=== PATIENT | female | born 1940 | race Caucasian/White ===

== ENCOUNTER 2017-03-11 11:46 | Outpatient (CLI) | payer MEDICARE, OTHER ==
[2017-03-11 12:32] LABS: eGFR (African) > 60; eGFR (Non-African) > 60
== END 2017-03-11 11:47 ==
LOC: LAB 11:46
PROVIDERS: ATTEND Family Medicine
DX: E11.9 Type 2 diabetes mellitus without complications (principal); I10 Essential (primary) hypertension
CPT/HCPCS: 36415; 80053; 80061; 82043; 83036

== ENCOUNTER 2018-06-01 11:19 | Outpatient (CLI) | payer MEDICARE, OTHER ==
[2018-06-01 12:08] LABS: eGFR (African) > 60; eGFR (Non-African) > 60
== END 2018-06-01 11:20 ==
LOC: LAB 11:19
PROVIDERS: ATTEND Family Medicine
DX: E11.9 Type 2 diabetes mellitus without complications (principal); I10 Essential (primary) hypertension
CPT/HCPCS: 36415; 80053; 80061; 82043; 83036

== ENCOUNTER 2018-07-25 08:19 | Day surgery (SDC) | payer MEDICARE, OTHER ==
[~2018-07-25 08:19] MED LIST: LACTATED RINGERS 500 ML IV.SOLN IV ONE; PROPOFOL 200 MG/20 ML VIAL IV ONE; SALINE FLUSH 10 ML DISP.SYRIN IVF ONE
--- NOTE | 2018-07-26 10:55 | GI Report ---
REFERRING PHYSICIAN: Dr. Ayden Valdovinos SUPERVISOR HARVESTING: Randy Spencer MD PROCEDURE MEDICATION: Propofol as per anesthesia. INDICATIONS: Patient is a 78-year-old woman referred for a screening colonoscopy. She denies any bleeding. She has occasional constipation but takes Metamucil. She has been stable cardiopulmonary foster. PROCEDURE PERFORMED: Colonoscopy and polypectomy. PROCEDURE: An Olympus video colonoscope was advanced into the rectum and slowly advanced to the cecum. The appendiceal orifice and ileocecal valve seemed normal. In the cecum, probably 1 fold or 2 cm to 3 cm above the ileocecal valve, the patient has this flat carpet-like villous-appearing polyp that was removed with electrocautery. It was probably about 4 mm to 5 mm in size but very, very flat and removed in 1 piece. The remaining part of the ascending colon was unremarkable. The transverse colon with no obvious intraluminal lesions noted. The descending colon, again, no obvious intraluminal lesions were noted. In the rectosigmoid, 4 polyps were removed between the rectum and 15 cm, all hyperplastic appearing and submitted to pathology. Patient tolerated the procedure well. FINDINGS: Five polyps removed, 1 near the cecum and 4 in the rectosigmoid. RECOMMENDATIONS: 1. Depending the pathology of the polyps, would have her colon re-looked at again in 5 years. 2. Increase fiber in her diet. 3. Follow up with Dr. Valdovinos. cc: Dr. Ayden ROSE
== END 2018-07-25 08:20 ==
LOC: OPSURG 08:19
PROVIDERS: ATTEND Internal Medicine Gastroenterology
DX: Z12.11 Encounter for screening for malignant neoplasm of colon (principal); K63.5 Polyp of colon
CPT/HCPCS: 45385; 88305; J2704; J7120; S1016

== ENCOUNTER 2018-12-09 09:35 | Emergency (ER) | payer MEDICARE, OTHER ==
--- NOTE | 2018-12-09 10:20 | ED Physician Documentation ---
Fall - HPI Stated Complaint: slipped on ice Chief Complaint: Fall Onset: just prior to arrival Where: home Context: slipped (on ice) Associated Symptoms:: denies: no loss of consciousness Location of Pain/Injury: hip (right) Injury to Right Extremity: none Injury to Left Extremity: none Further Comments: no - ROS CONST: no problems NEURO: denies: dizziness MS/SKIN/LYMPH: denies: weakness EYES/ENT: none CVS/RESP: none GI/: denies: nausea, vomiting - PAST HX Past History: diabetes Type 2 Allergies/Adverse Reactions: Allergies Allergy/AdvReac Type Severity Reaction Status Date / Time Penicillins Allergy Mild Rash Verified 12/09/18 10:12 tetanus immune globulin Allergy Mild Rash Verified 12/09/18 10:12 Home Medications: Ambulatory Orders Medication Instructions Recorded Orphenadrine Citrate [Norflex] 100 mg PO BID PRN #10 tab 12/09/18 - SOCIAL HX Smoking History: non-smoker Alcohol Use: none Drug Use: none - FAMILY HX Family History: none - VITAL SIGNS Vital Signs: Vital Signs Temp Pulse Resp BP Pulse Ox 98.2 F 104 H 16 205/87 98 12/09/18 09:47 12/09/18 09:47 12/09/18 09:47 12/09/18 09:47 12/09/18 09:47 - REVIEWED ASSESSMENTS Nursing Assessment Reviewed: Yes Vitals Reviewed: Yes ED Results Lab/Radiology - Orders Orders: ED Orders Category Date Time Status RT HIP 2VIEW COMPLETE [RAD] Stat Exams 12/09/18 Taken Fall Physical Exam - Physical Exam General Appearance: no acute distress, alert Head: non-tender, no obvious injury Neck: non-tender, painless ROM Eye: SHIRLEY ENT: nml external inspection Resp/CVS: chest non-tender, breath sounds nml Abdomen: soft, normal bowel sounds Neuro: oriented x3, sensation nml, motor nml Skin: no rash Back: normal inspection, no vertebral tenderness Extremities: atraumatic, pelvis stable, hips non-tender Joint: joints nml, nml ROM - Saravanan Coma Score Eyes Open: Spontaneous Speech: Oriented Motor: Obeys Commands Discharge Clincal Impression: Fall Qualifiers: Encounter type: initial encounter Qualified Code(s): W19.XXXA - Unspecified fall, initial encounter Prescriptions: Orphenadrine Citrate [Norflex] 100 mg PO BID PRN #10 tab PRN Reason: muscle spasm\ Referrals: Ayden Valdovinos MD [Primary Care Provider] - 2 Days Additional Instructions: 1. Tylenol and/or ibuprofen as needed for pain 2. Norflex as needed for muscle spasms. This medication can make you dizzy 3. Apply ice to affected area as needed for comfort 4. Follow up with PCP within 1 week 5. Return to ER for new or worsening symptoms. Condition: Stable Disposition: 01 HOME, SELF-CARE Decision to Admit: NO Date of Decison to Admit: 12/09/18 Decision Time: 10:25
[2018-12-09 11:02] VITALS: BP 179/101
--- NOTE | 2018-12-09 14:54 | Diagnostic Imaging Report ---
PHANI RON [facility] [address] [facility] [address] [address] Report Submission Date: Dec 09, 2018 10:15:56 AM PRODUCTION SUPPORT SPECIALIST Patient Study Name: SENIA BUCHANAN Date: Dec 09, 2018 9:48:47 AM PRODUCTION SUPPORT SPECIALIST Modality Type: DX Gender: F Description: RT HIP 2VIEW COMPLETE : 39 Institution: [facility] Physician: PHANI RON Examination: Plain film right hip History: RIGHT HIP PAIN AFTER FALL TODAY Comparison exams: None provided Findings: 2 views of the right hip demonstrate normal cortical margins. No fracture no dislocation. No soft tissue abnormality. Impression: No acute osseous abnormality. Electronically signed on Dec 09, 2018 10:15:56 AM PRODUCTION SUPPORT SPECIALIST by: Андрей ROSE
== END 2018-12-09 10:41 | disposition home or self-care (01) ==
LOC: ED 09:35
DX: M25.551 Pain in right hip (principal); W00.9XXA Unspecified fall due to ice and snow, initial encounter; Y93.9 Activity, unspecified; Y92.009 Unspecified place in unspecified non-institutional (private) residence as the place of occurrence of the external cause
CPT/HCPCS: 73502; 99282; 99283

== ENCOUNTER 2019-02-09 14:17 | Outpatient (CLI) | payer MEDICARE, OTHER ==
[2019-02-09 15:25] LABS: eGFR (Non-African) > 60
--- NOTE | 2019-02-11 06:27 | Diagnostic Imaging Report ---
AYDEN GARCIA [facility] [address] [facility] [address] [address] Report Submission Date: Feb 09, 2019 5:07:17 PM CDT Patient Study Name: SENIA BUCHANAN Date: Feb 09, 2019 2:53:22 PM CDT Modality Type: DX Gender: F Description: CHEST 2VIEW : 39 Institution: [facility] Physician: AYDEN GARCIA Chest PA and lateral views Clinical history: Dyspnea Prior films are not available for comparison. There is cardiomegaly with atherosclerotic thoracic aorta. Multiple lung nodules, bibasilar atelectasis and bilateral pleural effusions right more than left. Moderate thoracic spine spondylosis. Impression: No prior films are available for comparison Moderate cardiomegaly with atherosclerotic thoracic aorta Multiple lung nodules, bibasilar atelectasis and bilateral pleural effusions right more than left CT scan of the chest with IV contrast is recommended for further evaluation. Electronically signed on Feb 09, 2019 5:07:17 PM CDT by: Ayden ROSE
== END 2019-02-09 14:19 ==
LOC: RT 14:17
PROVIDERS: ATTEND Family Medicine
DX: R06.02 Shortness of breath (principal); R60.9 Edema, unspecified; E11.9 Type 2 diabetes mellitus without complications; I51.7 Cardiomegaly; I70.0 Atherosclerosis of aorta; R91.8 Other nonspecific abnormal finding of lung field
CPT/HCPCS: 36415; 71046; 80053; 83036; 83880; 85379

== ENCOUNTER 2019-02-22 09:42 | Outpatient (CLI) | payer MEDICARE, OTHER ==
--- NOTE | 2019-02-22 19:06 | Diagnostic Imaging Report ---
ANA GARCIA [facility] [address] Counts Include [address] Beds At [facility] [address] [place] [address]. [address] Report Submission Date: Feb 22, 2019 4:42:34 PM CDT Patient Study Name: SENIA BUCHANAN Date: Feb 22, 2019 10:20:14 AM CDT Modality Type: CT\SR Gender: F Description: CT CHEST W/ CONTRAST : 39 Institution: [facility] Physician: ANA GARCIA Examination: CT chest History: LUNG NODULES, PT STATES SOME SOA Comparison exams: Plain film dated 09 February 2019 Technique: CT chest with contrast protocol Findings: Bilateral pleural effusions, right greater than left. Adjacent compressive atelectasis. Diffuse interstitial prominence and patchy infiltrates. Scarring/sub lumbar collapse involving the right middle lung and left lung lingula.. In the region of the inferior aspect of the right upper lung a solid noncalcified density measuring 1.8 cm. Smaller nodularity involving the peripheral lung villa bilaterally including the apices, right greater than left. Left lower lung pulmonary granuloma. Few scattered subcentimeter hilar and mediastinal lymph nodes. Thoracic aorta demonstrates peripheral atherosclerotic disease. No aneurysmal dilation. Cardiac silhouette appears to be prominent. No gross pericardial thickening /effusion. Lower neck structures without gross irregularity. Degenerative changes of the thoracic vertebral bodies. No overt lytic or blastic foci. Liver demonstrates diffuse low attenuation. Prominence of the adrenal glands, left greater than right. Impression: Large right upper lung inferior segment solid lesion suspicious for carcinoma - biopsy recommended for cytologic evaluation. Scattered bilateral pulmonary nodules. Pulmonary consultation recommended to further evaluate. Bilateral pleural effusions with diffuse interstitial infiltrates. Fatty liver Electronically signed on Feb 22, 2019 4:42:34 PM CDT by: Андрей ROSE
== END 2019-02-22 09:44 ==
LOC: RAD 09:42
PROVIDERS: ATTEND Family Medicine
DX: R91.8 Other nonspecific abnormal finding of lung field (principal); J90 Pleural effusion, not elsewhere classified
CPT/HCPCS: 71260; Q9967

== ENCOUNTER 2019-09-14 09:57 | Observation (INO) | payer MEDICARE, OTHER ==
--- NOTE | 2019-09-14 10:38 | ED Physician Documentation ---
Upper Respiratory Symptoms - HISTORIAN Historian: patient - HPI Stated Complaint: SOA Chief Complaint: Dyspnea Additional Information: 79 year old female presents to ER with c/o SOA- she states that she has been having problems since January (I was healthy until then)- she was diagnosed by her PCP with a nodule in her right lung and was referred to oncology at the [facility]. She has since had a port placed and 2 chemo treatments. Her next chemo is on the . She states that chemo has been going well- she has not really had any side effects with the exception of scattered red rash. Over the last week she has been experiencing a productive (white sputum) cough and low grade fevers. She is a former smoker. She c/o occasional dizziness but states usually if she gets up to quickly; c/o nausea but has a good appetite. She states that she occasionally takes a "water pill" if she has swelling in her legs but has not had too. Onset: days ago Duration: intermittent episodes Context: recent chemotherapy. denies: recent foreign travel, multiple patients Severity: mild Associated Symptoms: fever (patient states that she has been having low grade temps), productive cough, shortness of breath Worsened by Deep Breath: No - ROS CONST/EYES: weakness CVS/RESP: shortness of breath. denies: chest pain, palpitations LYMPH: denies: leg swelling GI/: none NEURO/PSYCH: denies: confusion MS/SKIN: denies: joint pain, muscle aches - PAST HX Lung Disease: other (Lung CA) PE Risk Factors: hypertension Other History: hypertension, other (HLD, RBBB) Surgeries/Procedures: other (port placed) Immunizations: tetanus, pneumovax, UTD Allergies/Adverse Reactions: Allergies Allergy/AdvReac Type Severity Reaction Status Date / Time Penicillins Allergy Mild Rash Verified 09/14/19 10:17 tetanus immune globulin Allergy Mild Rash Verified 09/14/19 10:17 Home Medications: Ambulatory Orders Medication Instructions Recorded Albuterol Sulfate [Albuterol 2 puff INH QID PRN 09/14/19 Sulfate Hfa] Aspirin [Semaj] 1 tab PO DAILY 09/14/19 Budesonide/Formoterol Fumarate 2 puff INH BID 09/14/19 [Symbicort 160-4.5 Mcg Inhaler] Dexamethasone [Decadron] 2 tab PO BID 09/14/19 Folic Acid [Folvite] 1 tab PO DAILY 09/14/19 Ondansetron HCl Rapdis [Zofran ODT] 1 tab PO Q8 PRN 09/14/19 - SOCIAL HX Smoking History: quit less than 1 year Alcohol Use: none Drug Use: none - FAMILY HX Family History: none - VITAL SIGNS Vital Signs: Vital Signs Temp Pulse Resp BP Pulse Ox 98.8 F 90 20 165/78 93 09/14/19 12:59 09/14/19 12:59 09/14/19 12:59 09/14/19 12:59 09/14/19 12:59 - REVIEWED ASSESSMENTS Nursing Assessment Reviewed: Yes Vitals Reviewed: Yes Progress - Progress Progress: 11:00 still waiting on CXR- radiology contacted due to elevated trop. for stat XR still pending Will go ahead and give aspirin; patient has no complaints of chest pain 11:45 XRAY Report done; contacted Univ; Cardiology will return call 11:[address] Phillips with Cardiology; he recently cathed her in August on the and has some heart disease and leaking troponin (they were not too concerned considering she was not experiencing chest pain)- he agrees with observing her here as trop. elevation could be due to chemo. If troponin stays about the same she can go home tomorrow; if they worsen call him back. - EKG/XRAY/CT EKG: RBBB ED Results Lab/Radiology - Lab Results Lab Results: Lab Results 09/14/19 09/14/19 10:21 10:20 WBC 5.90 K/ul K/ul (4.00-12.00) RBC 3.85 M/ul L M/ul (3.90-5.20) Hgb 11.3 g/dL L g/dL (11.5-16.0) Hct 33.8 % L % (34.5-46.5) MCV 88.0 fl fl (80.0-100.0) MCH 29.3 pg pg (28.0-34.0) MCHC 33.4 g/dL g/dL (30.0-36.0) RDW 16.9 % H % (11.3-14.3) Plt Count 172 K/mm3 K/mm3 (130-400) Neut % (Auto) 78.3 % % (39.0-79.0) Lymph % (Auto) 9.8 % L % (16.0-50.0) [place]hel % (Auto) 8.2 % % (0.0-11.0) Eos % (Auto) 3.4 % % (0.0-6.8) Baso % (Auto) 0.3 % % (0.0-1.5) Neut # (Auto) 4.7 # k/uL # k/uL (1.4-7.7) Lymph # (Auto) 0.6 # k/uL # k/uL (0.6-4.0) Bethel # (Auto) 0.5 # k/uL # k/uL (0.0-0.9) Eos # (Auto) 0.2 # k/uL # k/uL (0.0-0.6) Baso # (Auto) 0.0 # k/uL # k/uL (0.0-0.5) Seg Neutrophils % 80 % H % (39-79) Lymphocytes % 10 % L % (16-50) Monocytes % 8 % % (0-11) Eosinophils % 2 % % (0-7) Large Platelets Present H (NEGATIVE) Plt Morphology Comment Abnormal H (NORMAL) Hypochromasia 1+ H (NEGATIVE) RBC Morph Comment Abnormal H (NORMAL) Sodium 134 mmol/L L mmol/L (137-145) Potassium 4.6 mmol/L mmol/L (3.5-5.1) Chloride 94 mmol/L L mmol/L (98-107) Carbon Dioxide 28 mmol/L mmol/L (22-30) Anion Gap 16.6 BUN 19 mg/dL H mg/dL (7-17) Creatinine 0.34 mg/dL L mg/dL (0.52-1.04) Estimated Creat Clear 155 Est GFR ( Amer) > 60 (60 - ) Est GFR (Non-Af Amer) > 60 (60 - ) Glucose 295 mg/dL H mg/dL (74-106) Calcium 9.6 mg/dL mg/dL (8.4-10.2) Total Bilirubin 0.5 mg/dL mg/dL (0.2-1.3) AST 38 U/L U/L (15-46) ALT 26 U/L U/L (0-35) Alkaline Phosphatase 81 U/L U/L (38-126) Creatine Kinase < 20 U/L L U/L (30-135) CK-MB (CK-2) 1.1 ng/mL ng/mL (0.0-5.6) Troponin I 0.115 ng/mL H ng/mL (0.012-0.034) NT-Pro-B Natriuret Pep 2475.5 pg/mL H pg/mL (15.0-450.0) Total Protein 6.9 g/dL g/dL (6.3-8.2) Albumin 4.0 g/dL g/dL (3.5-5.0) - Radiology Radiology Impressions: Exam: Chest two views. History: Shortness of breath. No previous studies are available for comparison. Lung villa are well aerated. a Port-A-Cath is in position over the right hemithorax with tip in the anticipated superior vena cava. Lung villa are well aerated. A spiculated nodular density in the right upper lobe is noted. Calcified granuloma in the left lower lobe are suspected. Heart size is stable with atherosclerotic plaques seen in the aorta. Impression: Nodular density in the right upper lobe. Old granulomatous disease. Electronically signed on Sep 14, 2019 11:41:30 AM MACHINE FITTER by: Eirc Peguero - Orders Orders: ED Orders Category Date Time Status Continuous EKG monitoring Q4 Care 09/14/19 10:20 Completed Continuous Pulse Oximetry Q30M Care 09/14/19 10:[address] IV Lock 1T Care 09/14/19 10:20 Active CHEST 2VIEW [RAD] Stat Exams 09/14/19 Completed CBC/PLATELET/DIFF Stat Lab 09/14/19 10:20 Completed CKMB Stat Lab 09/14/19 10:21 Completed CMP Stat Lab 09/14/19 10:21 Completed CREATINE KINASE Stat Lab 09/14/19 10:21 Completed NT BNP Stat Lab 09/14/19 10:21 Completed TROPONIN I Stat Lab 09/14/19 10:21 Completed Aspirin [Semaj] Med 09/14/19 11:11 Discontinued 162 mg PO NOW ONE Ipratropium/Albuterol Sulfate [Duoneb] Med 09/14/19 11:25 Discontinued 3 ml NEB NOW ONE Oxygen Daily Oxygen 09/14/19 10:30 Ordered EKG WITH COMPARISON Stat Ther 09/14/19 10:20 Ordered Upper Respiratory Symptoms - EXAM General Appearance: alert, mild distress EENT: eyes nml inspection, nml ENT inspection, lids & conjunct. nml, PERRL, ear nml, pharynx nml, airway nml Neck: normal inspection, supple. No: carotid bruit Respiratory: speaks full sentences, accessory muscle use, decreased air movement (diminished bibasilar) Abdomen: non-tender, nml bowel sounds CVS: heart sounds normal, equal pulses Skin: rash (red scattered rash (states oncologist is aware; side effect from the chemo)) Extremities: non-tender, normal range of motion Neuro/Psych: oriented x3, neuro intact, mood/affect nml Discharge Clincal Impression: Shortness of breath, Nodule of right lung, Constipation, Elevated troponin I level Condition: Good Decision to Admit: [id number] Date of Decison to Admit: 09/14/19 Decision Time: 12:00
[2019-09-14 10:53] LABS: eGFR (Non-African) > 60
[2019-09-14 10:55] LABS: BASOPHILS % 0.3 % (0.0-1.5); HYPOCHROMASIA 1+ (NEGATIVE); NEUTROPHILS # 4.7 # k/uL (1.4-7.7); SEGMENTED NEUTROPHILS % 80 % (39-79)
[2019-09-14] MEDS ORDERED: ASPIRIN 81 MG CHEW TAB PO ONE (11:11)
[2019-09-14] MEDS ORDERED: IPRATROPIUM/ALBUTEROL SULFATE 3 ML AMPUL.NEB NEB ONE (11:25)
--- NOTE | 2019-09-14 11:45 | Diagnostic Imaging Report ---
PATIENT MR#: [id number] PATIENT PATIENT NAME: SENIA BUCHANAN DATE OF : 1940 REFERRING PHYSICIAN: Teressa Marquis EXAM DATE: 09/14/2019 ACCESSION NUMBER: [id number] EXAM DESCRIPTION: CHEST 2VIEW Exam: Chest two views. History: Shortness of breath. No previous studies are available for comparison. Lung villa are well aerated. a Port-A-Cath is in position over the right hemithorax with tip in the anticipated superior vena cava. Lung villa are well aerated. A spiculated nodular density in the right upper l obe is noted. Calcified granuloma in the left lower lobe are suspected. Heart size is stable with atherosclerotic plaques seen in the aorta. Impression: Nodular density in the right upper lobe. Old granulomatous disease. Read by: Dr. Eric Crooks Transcribed by: Transcribed Date: Electronically signed by: Dr. Eric Crooks Date signed: 09/14/2019 11:45:08 AM
[2019-09-14 13:03] VITALS: BMI 29.2
[2019-09-14] MEDS: ENOXAPARIN SODIUM 30 MG/0.3 ML DISP.SYRIN SQ SCH (13:40)
[2019-09-14] MEDS ORDERED: POLYETHYLENE GLYCOL 3350 17 GM POWD.PACK PO ONE (15:52)
[2019-09-14] MEDS: PANTOPRAZOLE SODIUM 40 MG TABLET.DR PO SCH (16:04)
[2019-09-14] MEDS: INSULIN REGULAR, HUMAN 100 UNIT/ML 10ML VIAL SQ SCH ×2 (16:54→20:33)
[2019-09-14] MEDS ORDERED: ONDANSETRON HCL 4 MG TAB.RAPDIS PO PRN (17:27)
[2019-09-14] MEDS: IPRATROPIUM/ALBUTEROL SULFATE 3 ML AMPUL.NEB NEB SCH ×2 (17:42→23:44)
[2019-09-14] MEDS: SODIUM CHLORIDE 0.9 % (FLUSH) 10 ML DISP.SYRIN IV SCH (20:31)
[2019-09-14] MEDS ORDERED: SOUTH LOCK-UP KEY 1 EACH EACH MC ONE (20:36)
[2019-09-14] MEDS: Non-Formulary 1 EACH (Budesonide/Formoterol Fumarate [Symbicort 160-4.5 Mcg Inhaler] 2 PUF INH SCH (20:36)
[2019-09-14] MEDS ORDERED: MELATONIN 3 MG TABLET PO SCH (21:00)
[2019-09-15] MEDS ORDERED: ONDANSETRON HCL/PF 4 MG/ 2ML VIAL ONE (00:11)
[2019-09-15] MEDS ORDERED: ONDANSETRON HCL/PF 4 MG/ 2ML VIAL IVP STA (00:25)
[2019-09-15] MEDS: PANTOPRAZOLE SODIUM 40 MG TABLET.DR PO SCH (06:08)
[2019-09-15] MEDS: IPRATROPIUM/ALBUTEROL SULFATE 3 ML AMPUL.NEB NEB SCH (06:11)
[2019-09-15] MEDS ORDERED: SIMETHICONE 80 MG TAB.CHEW PO ONE (06:20)
--- NOTE | 2019-09-15 06:24 | Discharge Summary ---
Discharge Summary - Discharge [facility] Admission Date: 09/14/19 Discharge Date: 09/15/19 Discharge To: Home History of Present Illness: 79 year old female presents to ER with c/o SOA- she states that she has been having problems since January (I was healthy until then)- she was diagnosed by her PCP with a nodule in her right lung and was referred to oncology at the [facility]. She has since had a port placed and 2 chemo treatments. Her next chemo is on the . She states that chemo has been going well- she has not really had any side effects with the exception of scattered red rash. Over the last week she has been experiencing a productive (white sputum) cough and low grade fevers. She is a former smoker. She c/o occasional dizziness but states usually if she gets up to quickly; c/o nausea but has a good appetite. She states that she occasionally takes a "water pill" if she has swelling in her legs but has not had too. Condition at Discharge: Stable Home Medications: Ambulatory Orders Medication Instructions Recorded Albuterol Sulfate [Albuterol 2 puff INH QID PRN 09/14/19 Sulfate Hfa] Aspirin [Semaj] 1 tab PO DAILY 09/14/19 Budesonide/Formoterol Fumarate 2 puff INH BID 09/14/19 [Symbicort 160-4.5 Mcg Inhaler] Dexamethasone [Decadron] 2 tab PO BID 09/14/19 Folic Acid [Folvite] 1 tab PO DAILY 09/14/19 Ondansetron HCl Rapdis [Zofran ODT] 1 tab PO Q8 PRN 09/14/19 Consultations this Visit: None Procedures this Visit: None Allergies/Adverse Reactions: Allergies Allergy/AdvReac Type Severity Reaction Status Date / Time Penicillins Allergy Mild Rash Verified 09/16/19 16:26 tetanus immune globulin Allergy Mild Rash Verified 09/16/19 16:26 Discharge Summary: 79 year old female admitted observation with mild shortness of breath and rule out RI. She had a good night; cardiac enzymes are unchanged. She c/o gas and belching; discussed gas x. She has follow up appointment next week with PCP and oncology. she denies any chest pain or discomfort. Hospital Course: Cardiac enzymes, EKGs - Final Diagnosis (1) Elevated troponin I level Problems: Stable Right or Left: Right (2) Nodule of right lung Problems: Stable; has follow up with oncology Right or Left: Right (3) Shortness of breath Problems: Stable Right or Left: Right
[2019-09-15] MEDS ORDERED: metFORMIN HCl 500 MG TABLET PO SCH (07:00)
[2019-09-15] MEDS: INSULIN REGULAR, HUMAN 100 UNIT/ML 10ML VIAL SQ SCH (07:04)
[2019-09-15 07:34] LABS: eGFR (Non-African) > 60
[2019-09-15 07:40] LABS: BASOPHILS % 0.8 % (0.0-1.5)
[2019-09-15 07:41] LABS: NEUTROPHILS # 5.1 # k/uL (1.4-7.7); SEGMENTED NEUTROPHILS % 64 % (39-79)
[2019-09-15 07:42] LABS: ANISOCYTOSIS 1+ (NEGATIVE); HYPERSEGMENTED NEUTROPHILS PRESENT
[2019-09-15 08:49] VITALS: BP 137/55
[2019-09-15] MEDS: ENOXAPARIN SODIUM 30 MG/0.3 ML DISP.SYRIN SQ SCH (08:53)
[2019-09-15] MEDS: SODIUM CHLORIDE 0.9 % (FLUSH) 10 ML DISP.SYRIN IV SCH (08:54)
[2019-09-15] MEDS: Non-Formulary 1 EACH (Budesonide/Formoterol Fumarate [Symbicort 160-4.5 Mcg Inhaler] 2 PUF INH SCH (08:55)
[2019-09-15] MEDS ORDERED: ASPIRIN 81 MG CHEW TAB PO SCH (09:00)
[2019-09-15] MEDS ORDERED: FUROSEMIDE 20 MG TABLET PO SCH (09:00)
[2019-09-15] MEDS ORDERED: LISINOPRIL 20 MG TABLET PO SCH (09:00)
[2019-09-15] MEDS ORDERED: POLYETHYLENE GLYCOL 3350 17 GM POWD.PACK PO ONE ×2 (12:40→15:48)
== END 2019-09-15 11:00 | disposition home or self-care (01) ==
LOC: ED 09:57 → SOUTH 12:26
PROVIDERS: ADMIT Nurse Practitioner Family; ATTEND Nurse Practitioner Family
DX: K59.00 Constipation, unspecified (principal); R06.02 Shortness of breath; R91.1 Solitary pulmonary nodule; R79.89 Other specified abnormal findings of blood chemistry
CPT/HCPCS: 36415; 71046; 80053; 82550; 82553; 83880; 84484; 85025; 93005; 94640; 99218; 99282; 99284; G0378; J1650; J1815; J2405; J7030; S1016

== ENCOUNTER 2019-09-16 16:24 | Emergency (ER) | payer MEDICARE, OTHER ==
[2019-09-16 16:31] VITALS: BP 141/52
--- NOTE | 2019-09-16 17:06 | Diagnostic Imaging Report ---
PATIENT MR#: [id number] PATIENT PATIENT NAME: SENIA BUCHANAN DATE OF : 1940 REFERRING PHYSICIAN: Teressa Marquis EXAM DATE: 09/16/2019 ACCESSION NUMBER: [id number] EXAM DESCRIPTION: ABD SERIES PA CHEST Abdominal structures series with PA chest. History: Shortness of breath and Abdominal discomfort. Findings: Comparison is made to exam dated 09/14/2019. The heart is mildly enlarged. There is a ri ght upper lobe nodular density which is present and unchanged. Calcified left lower lobe nodule is present. Port r emains in place and terminates in the right atrium. No evidence of bowel dilation to suggest obstruction. Mild amount of retained stool is present. No free air fluid level present. Impression: 1. Right upper lobe nodular density, stable. 2. Normal bowel gas pattern. Read by: Dr. Gurinder Norris Transcribed by: Transcribed Date: Electronically signed by: Dr. Gurinder Norris Date signed: 09/16/2019 5:06:12 PM
--- NOTE | 2019-09-16 17:43 | ED Physician Documentation ---
GI Bleed - HISTORIAN Historian: patient - HPI Stated Complaint: SOA Chief Complaint: Abdominal Pain Additional Information: 79 year old female presents with c/o stool in rectum, bloating, and constipation; has not had BM in 4 days. She states that bloating is pushing up on her diaphragm making it hard for her to breath. Onset: days ago Timing: gradual onset Severity: moderate - Associated Symptoms Description of Stools: hard stools Abdominal Pain: other (bloating) Emesis Description: denies: blood Other Related Symptoms: nausea. denies: vomiting - ROS CONST: no problems SKIN/LYMPH: denies: leg swelling CVS/RESP: shortness of breath GI/: denies: problems urinating EYES/ENT: denies: problems with vision MS: none NEURO/PSYCH: denies: anxiety, depression - PAST HX Past History: other (right lung nodule; receiving chemo) Other History: diabetes Type 2, hypertension Surgeries/Procedures: other (port) Immunizations: UTD Allergies/Adverse Reactions: Allergies Allergy/AdvReac Type Severity Reaction Status Date / Time Penicillins Allergy Mild Rash Verified 09/16/19 16:26 tetanus immune globulin Allergy Mild Rash Verified 09/16/19 16:26 Home Medications: Ambulatory Orders Medication Instructions Recorded Albuterol Sulfate [Albuterol 2 puff INH QID PRN 09/14/19 Sulfate Hfa] Aspirin [Semaj] 1 tab PO DAILY 09/14/19 Budesonide/Formoterol Fumarate 2 puff INH BID 09/14/19 [Symbicort 160-4.5 Mcg Inhaler] Dexamethasone [Decadron] 2 tab PO BID 09/14/19 Folic Acid [Folvite] 1 tab PO DAILY 09/14/19 Ondansetron HCl Rapdis [Zofran ODT] 1 tab PO Q8 PRN 09/14/19 - SOCIAL HX Smoking History: non-smoker Alcohol Use: none Drug Use: none - FAMILY HX Family History: none - VITAL SIGNS Vital Signs: Vital Signs Temp Pulse Resp BP Pulse Ox 98.6 F 79 19 141/52 96 09/16/19 18:37 09/16/19 18:37 09/16/19 18:37 09/16/19 18:37 09/16/19 18:37 - REVIEWED ASSESSMENTS Nursing Assessment Reviewed: Yes Vitals Reviewed: Yes Procedures - Additional Procedures Progress: several attempts to manually disempaction- will do enema and continue to work on removing ED Results Lab/Radiology - Radiology Radiology Impressions: Abdominal structures series with PA chest. History: Shortness of breath and Abdominal discomfort. Findings: Comparison is made to exam dated 09/14/2019. The heart is mildly enlarged. There is a right upper lobe nodular density which is present and unchanged. Calcified left lower lobe nodule is present. Port remains in place and terminates in the right atrium. No evidence of bowel dilation to suggest obstruction. Mild amount of retained stool is present. No free air fluid level present. Impression: 1. Right upper lobe nodular density, stable. 2. Normal bowel gas pattern. Electronically signed on Sep 16, 2019 5:03:10 PM POWER AND RECOVERY SUPERVISOR by: Gurinder Norris - Orders Orders: ED Orders Category Date Time Status Soap Suds Enema [Administer Enema] 1T Care 09/16/19 17:17 Active ABD SERIES PA CHEST [RAD] Stat Exams 09/16/19 Completed Lidocaine 2% Viscous [Xylocaine 2% Viscous] Med 09/16/19 17:53 Discontinued 15 ml TOP NOW ONE Abdominal Pain Physical Exam - Physical Exam General Appearance: alert, mild distress EENT: eye inspection normal, ENT inspection normal, pharynx normal, SHIRLEY NECK: normal inspection RESPIRATORY: breath sounds normal CVS: heart sounds normal ABDOMEN: normal bowel sounds, non-tender RECTAL: other (hard stool) BACK: normal inspection SKIN: warm/dry, normal color EXTREMITIES: normal range of motion NEURO: oriented X3, CN's nml as tested, motor nml, sensation nml, mood/affect nml, cognition normal Vital Signs: Vital Signs Temp Pulse Resp BP Pulse Ox 98.6 F 79 19 141/52 96 09/16/19 18:37 09/16/19 18:37 09/16/19 18:37 09/16/19 18:37 09/16/19 18:37 Discharge Clincal Impression: Constipation Referrals: Ayden Valdovinos MD [Primary Care Provider] - 2 Days Additional Instructions: Mix one scoopful of Miralax in juice/water twice a day Drink at least 64 oz of water a day Increase fiber in diet Follow up with PCP next week Condition: Good Disposition: 01 HOME, SELF-CARE Decision to Admit: NO Decision Time: 07:02
== END 2019-09-16 18:38 | disposition home or self-care (01) ==
LOC: ED 16:24
DX: K59.00 Constipation, unspecified (principal)
CPT/HCPCS: 74022; 99282; 99283; A9270